=== PATIENT | female | born 1990 | race African-American/Black ===

== ENCOUNTER 2024-06-14 15:34 | Emergency (ER) | payer MEDICAID ==
[~2024-06-14] VITALS: Ht 167.6 cm; Wt 86.0 kg
[2024-06-14 15:41] VITALS: O2SAT 98
[2024-06-14 15:52] VITALS: BP 156/87; PULSE 113; RESP 16; TEMP 98.2; O2SAT 97
[2024-06-14 16:21] LABS: CLARITY URINE CLEAR (CLEAR); COLOR URINE YELLOW (YELLOW); GLUCOSE URINE NEGATIVE (NEGATIVE); KETONES URINE TRACE (NEGATIVE); LEUKOCYTE ESTERASE URINE TRACE (NEGATIVE); NITRITE URINE NEGATIVE (NEGATIVE); OCCULT BLOOD URINE NEGATIVE (NEGATIVE); PROTEIN URINE 1+ (NEGATIVE); SPECIFIC GRAVITY URINE 1.029 (1.005-1.030)
[2024-06-14 16:40] LABS: BACTERIA URINE TRACE; RBC URINE NONE SEEN /hpf (0-2); SQUAMOUS EPITHELIAL CELL URINE 1+ /lpf (RARE/1+); WBC URINE 0-2 /hpf (0-2)
[2024-06-14 16:45] LABS: BASOPHILS % 0.4 % (0.0-2.0); DIFFERENTIAL COMMENT 0; HEMATOCRIT. 37.7 % (36.0-48.0); HEMOGLOBIN. 11.8 g/dL (12.0-16.0); LYMPHOCYTES % 25.5 % (20.0-50.0); MEAN CORPUSCULAR HEMOGLOBIN 23.7 pg (28.0-32.0); MEAN CORPUSCULAR HGB CONC 31.4 g/dL (31.0-37.0); MEAN CORPUSCULAR VOLUME 75.6 fL (81.0-99.0); MEAN PLATELET VOLUME 7.4 fl (7.4-10.4); MONOCYTES % 5.5 % (2.0-8.0); NEUTROPHILS % 67.6 % (40.0-76.0); PLATELET 510 x1000/uL (130-400); RED BLOOD CELL COUNT 4.98 mill/uL (4.2-5.4); RED CELL DISTRIBUTION WIDTH 18.6 % (11.6-14.6); WHITE BLOOD COUNT 13.7 x1000/uL (4.5-11.0)
[2024-06-14 16:49] LABS: CHLORIDE 105 mEq/L (98-107); SODIUM 140 mEq/L (136-145)
[2024-06-14 16:50] LABS: CALCIUM 9.6 mg/dL (8.7-10.4); CARBON DIOXIDE 26 mEq/L (21-32)
[2024-06-14 16:55] LABS: CREATININE 0.7 mg/dL (0.6-1.0); GLUCOSE 97 mg/dL (70-105); UREA NITROGEN BLOOD 7 mg/dL (9-23)
[2024-06-14 16:57] LABS: ALANINE AMINOTRANSFERASE 17 IU/L (10-49); ALBUMIN 4.7 g/dL (3.2-4.8); ASPARTATE AMINOTRANSFERASE 16 IU/L (<34)
[2024-06-14 16:58] LABS: BILIRUBIN TOTAL 0.2 mg/dL (0.1-1.0); PROTEIN TOTAL 8.7 g/dL (6.0-8.3)
[2024-06-14 16:59] LABS: BILIRUBIN DIRECT < 0.1 mg/dL (<=3.0)
[2024-06-14] MEDS ORDERED: KETOROLAC 30MG/ML VIAL IM ONE (20:15)
[2024-06-14] MEDS ORDERED: CEPH500T MT (22:28)
[2024-06-14] MEDS ORDERED: IBUP-2029 MT (22:28)
== END 2024-06-14 22:56 | disposition home or self-care (01) ==
LOC: ER 15:34
DX: D25.9 Leiomyoma of uterus, unspecified (principal); N39.0 Urinary tract infection, site not specified; Z68.30 Body mass index [BMI] 30.0-30.9, adult; Z88.1 Allergy status to other antibiotic agents
CPT/HCPCS: 36415; 76830; 76856; 80048; 80076; 81003; 81025; 85025; 86850; 86900; 99284